=== PATIENT | male | born 1985 | race African-American/Black ===

== ENCOUNTER 2017-08-31 18:10 | Emergency (ER) | payer SELFPAY ==
[~2017-08-31] VITALS: Ht 185.4 cm; Wt 78.5 kg
[2017-08-31] MEDS ORDERED: Lidocaine 1% MPF 10mg/ml 5ml INJ ONE (18:45)
[2017-08-31] MEDS ORDERED: Azithromycin 250mg tab ORAL ONE (18:45)
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
[2017-08-31 19:47] VITALS: BP 118/83
== END 2017-08-31 19:47 | disposition home or self-care (01) ==
LOC: EMR 19:00
DX: Z20.2 Contact with and (suspected) exposure to infections with a predominantly sexual mode of transmission (principal)
CPT/HCPCS: 96372; 99283; J0696

== ENCOUNTER 2017-11-12 23:38 | Emergency (ER) | payer SELFPAY ==
[~2017-11-12] VITALS: Ht 185.4 cm; Wt 80.7 kg
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
[2017-11-13 00:30] VITALS: BP 116/79
[2017-11-13] MEDS ORDERED: Lidocaine 1% MPF 10mg/ml 5ml INJ ONE (00:30)
[2017-11-13] MEDS ORDERED: Azithromycin 250mg tab ORAL ONE (00:30)
[2017-11-13 01:18] VITALS: BP 116/79
== END 2017-11-13 01:21 | disposition home or self-care (01) ==
LOC: EMR 11-13 00:31
DX: A63.8 Other specified predominantly sexually transmitted diseases (principal)
CPT/HCPCS: 96372; 99283; J0696